=== PATIENT | male | born 1930 | race Caucasian/White ===

== ENCOUNTER → 2018-02-25 13:21 | Outpatient (CLI) | payer MEDICARE, BC ==
--- NOTE | ~2018-02-25 | EC ---
PATIENT:TIERNEY DIAL DATE OF SERVICE: 02/25/18 SEX: M MEDICAL RECORD: [id number] DATE OF : 32 LOCATION:D[facility] AGE OF PATIENT: 87 ADMISSION DATE: 02/25/18 REFERRING PHYSICIAN: INTERPRETING PHYSICIAN: PAMELA VERGARA MD ECHOCARDIOGRAM REPORT ECHO CHARGES 4 ECHO COMPLETE Date: 02/25 CLINICAL DIAGNOSIS: PVD,EDEMA OF LLL ECHOCARDIOGRAPHIC MEASUREMENTS (adult normal given) AC root (d.<3.7cm) 3.2 cm LV Septum d (<1.2 cm> 1.7 cm Valve Excursion 1.8 cm LV Septum (systole) 1.8 cm Left Atria (s.<4.0cm> 3.8 cm LVPW d(<1.2cm) 1.7 cm RV (d.<2.3cm) 4.2 cm LVPW (sytole) 1.9 cm LV diastole(<5.6CM) 4.0 cm MV E-F(>70mm/sec) cm LV systole 2.2 cm LVOT Diameter cm MV exc.(>10mm) 1.9 cm Est.ejection fraction (50-75%) % DOPPLER: LVIT 67.0 cm/sec A cm/sec E 78.0 cm/sec LA 93 cm/sec RVSP 28 mmHg LVOT 104 cm/sec AOP1/2T m/s Asc. Ao cm/sec RVOT 66 cm/sec RA cm/sec PA 99 cm/sec AV Gradient Peak 4.35 mmHg AV Mean 2.44 mmHg AV Area 2.3 cm MV Gradient Peak 2.99 mmHg MV Mean 1.09 mmHg MV Area cm COMMENTS: Glass Edger: Venessa BAUTISTA Well Driller: Atif Vergara TAPE# PACS Pericardial Effusion N DATE OF SERVICE: PROCEDURE: Transthoracic echocardiogram. FINDINGS: 1. The patient has LVH. Ejection fraction is 60%. Left atrium is normal size, shape, and function. 2. The aortic valve is normal. 3. The mitral valve is normal. 4. The tricuspid valve has mild tricuspid regurgitation. RVSP at 28 mmHg. ECHOCARDIOGRAM REPORT [id number] TIERNEY DIAL 5. The pericardium is normal. 6. The right ventricle is difficult to visualize, appears to have dilatation of the right ventricular structure with right ventricular hypertrophy, but with normal function. 7. The right atrium is mildly dilated. 8. The pulmonic valve is not well visualized. 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 TRANSINT:[id number] Voice Confirmation ID: [id number] DOCUMENT ID: [id number] PAMELA VERGARA MD at 1120 CC: [id number] DICTATION DATE: 02/25/18 1520 APPLICATIONS PROJECT MANAGER: 02/25/18 1538 DEP CLI 02/25/18 [facility] [address] [id number]
[~2018-02-25 13:21] MED LIST: ASPIRIN81 MG PO; BAYER CHEWABLE81 MG PO; LIPITOR10 MG PO; PLAVIX PO; PLAVIX75 MG PO
[2018-03-03 08:23] VITALS: BMI 21.7
== END | disposition home or self-care (01) ==
LOC: D.ECHO 13:21
DX: I73.9 Peripheral vascular disease, unspecified (principal); R20.2 Paresthesia of skin; I87.2 Venous insufficiency (chronic) (peripheral); R09.89 Other specified symptoms and signs involving the circulatory and respiratory systems; R07.9 Chest pain, unspecified; G45.9 Transient cerebral ischemic attack, unspecified

== ENCOUNTER 2018-03-03 07:49 | Outpatient (CLI) | payer MEDICARE, BC ==
[~2018-03-03] VITALS: Ht 177.8 cm; Wt 68.6 kg
--- NOTE | ~2018-03-03 | HEMODYNAMI ---
PATIENT:TIERNEY DIAL MEDICAL RECORD: [id number] : 32 LOCATION:[facility] ADMISSION DATE: 03/03/18 Generatedon:03/03/201810:59 Patient name: TIERNEY DIAL Patient #: [id number] SSN: : 1930 Date of study: 03/03/2018 Page: Of Hemodynamic Procedure Report Patient Data Patient Demographics Procedure consent was obtained First Name: TIERNEY Gender: Male Last Name: JAYRO : 1930 Middle Initial: M Age: 87 year(s) Patient #: [id number] Race: Additional ID: [id number] Contact details Address: [address] [place] [address] State: [place] City: [place] Zip code: [address] Admission Admission Data Admission Date: 03/03/2018 Admission Time: 7:49 Procedure Procedure Types Cath Procedure Peripheral Cath Diagnostic Procedure Cath Peripheral Zdtme-Fybbewe-Rgj-Off Abd/Extremity Extremities Left Lower Ext Arterio Right Lower Ext Arterio Peripheral vascular Intervention Stent Stent-Tib/Per w/plasty Initial Procedure Description Procedure Date Procedure Date: 03/03/2018 Procedure Start Time: 10:14 Procedure End Time: 10:51 Procedure Staff Name Function Guero Fuentes MD Ordering physician Rudy Junior MD Performing Physician Farida Weinberg RT Monitor Tamica Ho RT Scrub Nader Will RN Nurse Procedure Data Cath Procedure Fluoroscopy Diagnostic fluoroscopy Total fluoroscopy Time: 8.5 time: 8.5 min min Diagnostic fluoroscopy Total fluoroscopy dose: 161 dose: 161 mGy mGy Contrast Material Contrast Material Type Amount (ml) Isovue 300 126 Entry Location Entry Primary Successful Side Size Upsize Upsize Entry Closure Succes sful Closure Location (Fr) 1 (Fr) 2 (Fr) Remarks Device Remarks Femoral Right 5 Fr 6 Fr 6 Fr Exoseal artery Long Short Estimated blood loss: 5 ml Diagnostic catheters Device Type Used For End Catheter Placement DIAGNOSTIC Pigtail 5Fr Multi-vessel catheter ([id number]) Angiography Procedure Complications No complications Procedure Medications Medication Administration Route Dosage Oxygen NC 2 l/min Lidocaine 1% added to field 20 Heparin Flush Bag added to field 2 bags (1000units/500ml NS) 0.9% NaCl I.V. 100 ml/hr Versed I.V. 1 mg Fentanyl I.V. 50 mcg Nitroglycerin IC/IA I.A. 300 mcg Angiomax (bolus) I.V. 10.5 ml Angiomax Drip I.V. drip 24.2 ml/hr (250mg/50ml NS) (Standard) Nitroglycerin IC/IA I.A. 400 mcg Nitroglycerin IC/IA I.A. 300 mcg Angiomax Drip 24.2 ml/hr (250mg/50ml NS) (Standard) Hemodynamics Rest Heart Rate: 47 (bpm) Snapshots Pre Cath Intra NCS Post Cath Vital Signs Time Heart Resp SPO2 etCO2 NIBP (mmHg) Rhythm Pain Sedation Rate (ipm) (%) (mmHg) Status Level (bpm) 10:07:54 49 15 99 0 150/73(124) NSR 0 (11) 10(A) , No pain 10:12:16 48 12 94 0 148/70(127) NSR 0 (11) 10(A) , No pain 10:16:35 49 15 95 0 146/77(121) NSR 0 (11) 10(A) , No pain 10:20:55 47 16 99 30.2 135/68(114) NSR 0 (11) 9(A) , No pain 10:25:13 49 13 98 34.4 130/64(110) NSR 0 (11) 9(A) , No pain 10:29:21 48 19 98 25.4 119/63(76) NSR 0 (11) 9(A) , No pain 10:33:32 50 15 97 29.9 120/65(105) NSR 0 (11) 9(A) , No pain 10:37:42 50 22 97 27.7 115/66(86) NSR 0 (11) 10(A) , No pain 10:41:50 50 17 98 23.9 126/66(78) NSR 0 (11) 10(A) , No pain 10:46:06 51 19 98 26.9 118/63(91) NSR 0 (11) 10(A) , No pain 10:50:18 49 15 99 29.2 118/61(95) NSR 0 (11) 10(A) , No pain Medications Time Medication Route Dose Verified Delivered Reason Notes Effectiveness by by 10:06:10 Oxygen NC 2 Rudy Buffie used for l/min Sandi Will RN procedure 10:06:17 Lidocaine 1% added to field 20ml Rudy Buffie for local vial Sandi Will RN anesthetic 10:06:24 Heparin Flush added to field 2 Rudy Buffie used for Bag bags Sandi Will RN procedure (1000units/500ml NS) 10:06:32 0.9% NaCl I.V. 100 Rudy Buffie Per physici an ml/hr Sandi Will RN, MD 10:13:26 Versed I.V. 1 mg Rudy Buffie for sedatio n Sandi Will RN, MD 10:13:31 Fentanyl I.V. 50 Rudy Buffie for sedatio n mcg Sandi Will RN, MD 10:24:27 Nitroglycerin I.A. 300 Rudy Rudy for IC/IA mcg Sandi Junior MD vasodilation 10:36:05 Angiomax (bolus) I.V. 10.5 Rudy Buffie for 250mg/50ml ml Sandi Will RN anticoagulation 10:36:19 Nitroglycerin I.A. 400 Rudy Rudy for IC/IA mcg Sandi Junior MD vasodilation 10:37:02 Angiomax Drip I.V. drip 24.2 Rudy Buffie for (250mg/50ml NS) ml/hr Sandi Will RN anticoagulation (Standard) 10:44:01 Nitroglycerin I.A. 300 Rudy Rudy for IC/IA mcg Sandi Junior MD vasodilation 10:49:44 Angiomax Drip I.V. 24.2 Rudy Buffie for (250mg/50ml NS) drip-discontinued ml/hr Sandi Will RN anticoagulation (Standard) Procedure Log Time Note 9:50:00 Informed consent obtained and on chart 9:50:07 Diagnostic Cath Status : Elective 9:50:34 Nader Will RN sent for patient. Start room use. 9:50:35 Time tracking: Regular hours (M-F 7:00 - 5:00) 9:50:40 Plan of Care:Hemodynamics will remain stable., Cardiac rhythm will remain stable., Comfort level will be maintained., Respiratory function will remain adequate., Patient/ family verbilizes understanding of procedure., Procedure tolerated without complication., Recovers from procedure without complications.. 10:06:10 Oxygen 2 l/min NC was administered by Nader Will RN; used for procedure; 10:06:17 Lidocaine 1% 20ml vial added to field was administered by Nader Will RN; for local anesthetic; 10:06:24 Heparin Flush Bag (1000units/500ml NS) 2 bags added to field was administered by Nader Will RN; used for procedure; 10:06:32 0.9% NaCl 100 ml/hr I.V. was administered by Nader Will RN; Per physician; 10:06:35 Vital chart was started 10:09:49 Patient received from Pre/Post Procedure Room to CCL 2 Alert and oriented. Tansferred to table in Supine position. 10:09:51 Warm blankets applied, and america hugger turned on for patient comfort. 10:09:51 Correct patient and procedure confirmed by team. 10:09:51 ECG and BP/O2 sat monitors applied to patient. 10:09:52 Baseline sample Acquired. 10:09:56 Rhythm: sinus rhythm 10:09:58 Full Disclosure recording started 10:10:03 H&P Date Dictated: 03/03/2018 Within 30 days and on chart., H&P Addendum completed by physician on day of procedure. (MUST COMPLETE FOR ALL OUTPATIENTS). 10:10:04 Pre-procedure instructions explained to patient. 10:10:05 Pre-op teaching completed and patient verbalized understanding. 10:10:06 Family in waiting room. 10:10:07 Patient NPO since Midnight. 10:10:10 Is the patient allergic to Iodine/contrast media? No. 10:10:11 Was the patient premedicated? No 10:10:12 Is patient on blood thinner?Yes 10:10:15 ACC The patient was administered the following blood thiners within the last 24 hours: ACCPlavix 10:10:17 Patient diabetic? No. 10:10:21 Previous problem with sedation/anesthesia? No ? 10:10:23 Snore? Yes 10:10:24 Sleep apnea? No 10:10:25 Deviated septum? No 10:10:25 Opens mouth fully? Yes 10:10:26 Sticks out tongue? Yes 10:10:27 Airway obstruction? No ? 10:10:30 Dentures? No ? 10:10:34 Pre procedure: right dorsailis pedis pulse 1+ Palpable, but thready & weak; easily obliterated 10:10:36 Pre procedure: left dorsailis pedis pulse 1+ Palpable, but thready & weak; easily obliterated 10:10:37 Patient pain scale 0/10 ?. 10:10:48 IV patent on arrival in left forearm with 0.9% NaCl at [facility]. 10:10:51 Lab results completed and on chart. 10:10:57 Bilateral groins area was prepped with chlora-prep and draped in sterile fashion 10:10:58 Alarms reviewed by R. N. 10:10:58 Sharps counted by scrub and verified by R.N. 10:11:04 Physician arrived 10:11:04 --------ALL STOP TIME OUT------ 10:11:05 Final Timeout: patient, procedure, and site verified with staff and physician. All members of the team are in agreement. 10:11:08 Bilateral groins site verified by team. 10:11:11 Physical assessment completed. ASA score P 2 - A patient with mild systemic disease as per Rudy Junior MD. 10:11:14 Sedation plan: IV Moderate Sedation Medication:Versed, Fentanyl 10:11:20 Use device set Femoral Dx 10:11:21 ACIST Syringe (17571) opened to sterile field. 10:11:21 Bag Decanter () opened to sterile field. 10:11:22 Medline Cath Pack ([id number]) opened to sterile field. 10:11:22 DIAGNOSTIC WIRE .035 260cm J wire (162643) opened to sterile field. 10:11:23 ACIST Hand Control (68353) opened to sterile field. 10:11:24 ACIST Manifold (98250) opened to sterile field. 10:11:25 Tegaderm 4 x 4 (1626W) opened to sterile field. 10:11:26 SHEATH Prelude 5Fr 0.035 (QNK-3H-35-035) opened to sterile field. 10:12:07 Procedure started. 10:13:26 Versed 1 mg I.V. was administered by Nader Will RN; for sedation; 10:13:31 Fentanyl 50 mcg I.V. was administered by Nader Will RN; for sedation; 10:14:45 Local anesthetic to right femoral artery with Lidocaine 1% by Rudy Junior MD.INITIAL ACCESS ONLY 10:14:46 Access obtained with 4Fr micropunture. 10:14:55 A 5 Fr sheath was inserted into the Right Femoral artery 10:15:01 MICROPUNCTURE 4FR Ocean Seed (Q37314) opened to sterile field. 10:17:17 A DIAGNOSTIC Pigtail 5Fr catheter ([id number]) was advanced over the wire and used for Multi-vessel Angiography. 10:17:31 abdominal aortagram with runoff was performed. 10:21:04 GLIDE WIRE ANGLE 260cm (FX7874) opened to sterile field. 10:23:06 left popliteal artery selected and injected with contrast 10:24:27 Nitroglycerin IC/IA 300 mcg I.A. was administered by Rudy Junior MD; for vasodilation; 10:31:12 SHEATH 6FR Brite Tip 90cm ([id number]) opened to sterile field. 10:31:30 TORQUE DEVICE PLASTIC .038 ( TD01) opened to sterile field. 10:31:31 INFLATOR Merit BasixCompak (MG1149) opened to sterile field. 10:31:33 COPILOT Valve Control (6021572) opened to sterile field. 10:32:07 SHEATH 6Fr Prelude ([id number]) opened to sterile field. 10:32:35 Catheter removed. 10:32:45 Sheath upsized to a 6 Fr Long. 10:33:44 BMW 300cm [place] 2 J wire ([id number]) opened to sterile field. 10:34:19 glide wire exchanged for bmw wire 10:36:05 Angiomax (bolus) 10.5 ml I.V. was administered by Nader Will RN; for anticoagulation; 250mg/50ml 10:36:07 Procedure type changed to Cath procedure, Peripheral Cath Diagnostic Procedure, Cath Peripheral, Bflmf-Okrlkju-Iki-Off, Abd/Extremity, Extremities, Left Lower Ext Arterio, Right Lower Ext Arterio, Peripheral vascular Intervention, Stent, Stent-Tib/Per w/plasty Initial 10:36:19 Nitroglycerin IC/IA 400 mcg I.A. was administered by Rudy Junior MD; for vasodilation; 10:37:02 Angiomax Drip (250mg/50ml NS) (Standard) 24.2 ml/hr I.V. drip was administered by Nader Will RN; for anticoagulation; 10:38:43 Wire advanced across lesion. 10:40:38 Place stent Inflation Number: 1 A ROGER RX 2.0 x 22 stent ([id number]) was prepped and advanced across the Mid Posterior Tibial, Left. The stent was deployed at 18 DANIELLE for 0:10 (min:sec). 10:41:43 Stent catheter was removed intact over wire. 10:43:13 Place stent Inflation Number: 2 A ROGER RX 3.5 x 18 stent ([id number]) was prepped and advanced across the Mid Posterior Tibial, Left. The stent was deployed at 18 DANIELLE for 0:10 (min:sec). 10:43:35 Stent catheter was removed intact over wire. 10:44:01 Nitroglycerin IC/IA 300 mcg I.A. was administered by Rudy Junior MD; for vasodilation; 10:45:08 Wire removed. 10:45:08 Guide catheter removed. 10:45:23 Wire removed. 10:45:30 glide wire advanced. 10:47:38 6 f 90 sheath pulled back 10:48:16 Right leg runoff performed. 10:49:44 Angiomax Drip (250mg/50ml NS) (Standard) 24.2 ml/hr I.V. drip-discontinued was administered by Nader Will RN; for anticoagulation; 10:49:59 Sheath upsized to a 6 Fr Short. 10:50:19 EXOSEAL 6Fr (EX600) opened to sterile field. 10:50:31 Sheath removed intact; hemostasis achieved with Exoseal to the Right Femoral artery. 10:50:40 Procedure ended.(Physican Out) 10:50:48 Fluoroscopy time 08.50 minutes. 10:50:52 Fluoroscopy dose: 161 mGy 10:50:52 Flurop Dose total: 161 10:50:56 Contrast amount:Isovue 300 126ml. 10:50:58 Sharps counted by scrub and verified by R.N. 10:51:02 Insertion/operative site no bleeding no hematoma. 10:51:09 Post-op/insertion site Right Femoral artery dressed using a 4 x 4 and Tegaderm. 10:51:11 Post right femoral artery:stable 10:51:13 Post Procedure Pulses reassessed and unchanged 10:51:15 Post procedure rhythm: unchanged. 10:51:18 Estimated blood loss: 5 ml 10:51:19 Post procedure instruction explained to patient.Patient verbalizes understanding. 10:51:19 Patient needs reinforcement of post procedure teaching. 10:51:20 Procedure and supply charges have been captured, reviewed, submitted and are correct. 10:51:24 Procedure Complication : No complications 10:51:26 Vital chart was stopped 10:51:27 See physician's report for complete and final results. 10:51:36 Report given to Pre/Post Procedure Room. 10:51:38 Patient transfered to Pre/Post Procedure Room with Stretcher. 10:51:40 Procedure ended. 10:51:40 Full Disclosure recording stopped 10:52:31 ACC-PCI Only Patient was given prescriptions, or instructed by Rudy Junior MD to start/continue the following medications upon discharge: Plavix 10:52:33 End room use (Document Last) Intervention Summary Intervention Notes Time ActionType Lesion and Equipment Used Action# Pressure Duration Attributes 10:40:38 Place stent Mid ROGER RX 2.0 x 1 18 00:10 Posterior 22 stent Tibial, ([id number]) Left 10:43:13 Place stent Mid ROGER RX 3.5 x 2 18 00:10 Posterior 18 stent Tibial, ([id number]) Left Device Usage Item Name Manufacture Quantity Catalog Number Hospital Part Current Minimal Lot# / Charge Number Stock Stock Serial# Code ACIST Syringe Acist 1 96547 907057 308864 [id number] 20 (49309) [employer] Systems Inc Bag Decanter Microtek 1 2001S 683552 40461 245419 5 () Medical Inc. Medline Cath Cardinal 1 [id number] 266146 51816 669786 5 [facility] ([id number]) DIAGNOSTIC WIRE St Zi 1 752311 984259 510689 913539 30 .035 260cm J wire (783460) ACIST Hand Acist 1 58887 178715 584274 596320 5 Control (71255) [employer] Inc ACIST Manifold Acist 1 37842 153986 464613 747887 5 (08483) Medical Systems Inc Tegaderm 4 x 4 3M 1 1626W 165395 540256 874121 5 (1626W) SHEATH Prelude Merit 1 [id number] 450637 725560 485262 5 5Fr 0.035 Medical ([id number]) DIAGNOSTIC Cardinal 1 [id number] 840861 524053 251298 5 Pigtail 5Fr Health catheter ([id number]) MICROPUNCTURE Cook Medical 1 B76689 110118 047114 761259 5 4FR Cook (C83365) GLIDE WIRE Terumo 1 ZC6713 310786 805704 006670 5 ANGLE 260cm (UD2208) SHEATH 6FR Cardinal 1 [id number] 047519 952527 072287 5 Brite Tip 90cm Health ([id number]) TORQUE DEVICE Avalon 1 TD01 110028 928931 173238 5 PLASTIC .038 ( Scientific TD01) INFLATOR Merit Merit 1 [id number] 586749 773788 739986 15 BasixComselect medical [facility] Medical ([id number]) COPILOT Valve [place] 1 [id number] 750798 706366 190786 5 Control Vascular (0678365) SHEATH 6Fr Merit 1 [id number] 149324 954375 160257 5 Prelude Medical ([id number]) BMW 300cm [place] 1 [id number] 132346 971170 568467 5 [place] 2 J Vascular wire ([id number]) ROGER RX 2.0 x Medtronic 1 [id number] 356845 0502482 725760 5 [id number] 22 stent ([id number]) ROGER RX 3.5 x Medtronic 1 [id number] 069121 0119914 549542 5 [id number] 18 stent ([id number]) EXOSEAL 6Fr Cardinal 1 EX600 238389 020746 412723 10 (EX600) Health Signature Audit [place] Stage Time Signature Unsigned Intra-Procedure 03/03/2018 Farida Weinberg 10:58:59 AM RT(R) Signatures Monitor : Farida Weinberg RT Signature : Date : Time : [facility] [address] [place] [address]
[2018-03-03] MEDS ORDERED: BAYER CHEWABLE81 MG PO (08:13)
[2018-03-03 08:23] VITALS: BP 145/70; Ht 177.8 cm; Wt 68.6 kg
[2018-03-03 08:34] LABS: BASOPHILS 0.3 % (0-2); HEMATOCRIT 45.2 % (42.0-54.0); HEMOGLOBIN 15.4 g/dL (13.5-17.5); IMMATURE GRANULOCYTES 0.1 % (0-5); LYMPHOCYTES 35.2 % (15-50); MCH 32.2 pg (26.0-34.0); MCHC 34.1 g/dL (31.0-37.0); MCV 94.6 fL (80.0-100.0); MEAN PLATELET VOLUME 10.9 fL (7.4-10.4); MONOCYTES 5.2 % (2-11); NEUTROPHILS 57.2 % (40-80); PLATELET COUNT 210 10x3/uL (130-400); RBC 4.78 10x6/uL (4.20-6.10); WBC 8.6 10x3/uL (4.8-10.8)
[2018-03-03 09:04] LABS: ANION GAP 9.3 mmol/L (8-16); CALCIUM 9.1 mg/dL (8.5-10.1); CARBON DIOXIDE 29.8 mmol/L (21.0-32.0); CREATININE - SERUM 1.1 mg/dL (0.6-1.3); POTASSIUM - SERUM 4.1 mmol/L (3.5-5.1); T4 THYROXIN - FREE 0.92 ng/dL (0.76-1.46); THYROID STIMULATING HORMONE 3.35 uIU/mL (0.36-3.74)
[2018-03-03] MEDS ORDERED: PLAVIX PO (11:16)
[2018-03-03] MEDS ORDERED: PLAVIX75 MG PO (11:18)
[2018-03-03] MEDS ORDERED: LIPITOR10 MG PO (11:18)
[2018-03-03] MEDS ORDERED: ASPIRIN81 MG PO (11:21)
[2018-03-04 08:21] LABS: FOLATE (FOLIC ACID) - SERUM >20.0 ng/mL (>3.0)
== END 2018-03-03 15:15 | disposition home or self-care (01) ==
LOC: D.CATH 07:49
PROVIDERS: Internal Medicine Cardiovascular Disease
DX: I70.213 Atherosclerosis of native arteries of extremities with intermittent claudication, bilateral legs (principal); Z01.812 Encounter for preprocedural laboratory examination

== ENCOUNTER → 2018-06-01 15:03 | Outpatient (CLI) | payer MEDICARE, BC ==
[2018-03-03 08:23] VITALS: BMI 21.7
[2018-06-01 17:37] LABS: CHOL - HDL RATIO 3.5 ratio (2.3-4.9); LDL-HDL RATIO 1.9 ratio (1.5-3.5)
== END | disposition home or self-care (01) ==
LOC: D.LABREF 15:03
PROVIDERS: Internal Medicine Cardiovascular Disease
DX: E78.5 Hyperlipidemia, unspecified (principal)

== ENCOUNTER 2018-10-17 11:19 | Outpatient (CLI) | payer MEDICARE, BC ==
[~2018-10-17] VITALS: Ht 177.8 cm; Wt 70.9 kg
--- NOTE | ~2018-10-17 | HEMODYNAMI ---
PATIENT:TIERNEY DIAL MEDICAL RECORD: [id number] : 32 LOCATION:[facility] ADMISSION DATE: 10/17/18 Generatedon:10/17/201815:52 Patient name: TIERNEY DIAL Patient #: [id number] SSN: : 1930 Date of study: 10/17/2018 Page: Of Hemodynamic Procedure Report Patient Data Patient Demographics Procedure consent was obtained First Name: TIERNEY Gender: Male Last Name: JAYRO : 1930 Middle Initial: M Age: 87 year(s) Patient #: [id number] Race: Additional ID: [id number] Contact details Address: [address] [place] [address] State: [place] City: [place] Zip code: [address] Admission Admission Data Admission Date: 10/17/2018 Admission Time: 11:19 Procedure Procedure Types Cath Procedure Diagnostic Procedure LHC LHC w/Coronaries Procedure Description Procedure Date Procedure Date: 10/17/2018 Procedure Start Time: 15:38 Procedure End Time: 15:51 Procedure Staff Name Function Tree Pat MD Performing Physician Harpal Gifford RT Monitor Farida Weinberg RT Scrub Nader Will RN Nurse Procedure Data Cath Procedure Fluoroscopy Diagnostic fluoroscopy Total fluoroscopy Time: 1.2 time: 1.2 min min Diagnostic fluoroscopy Total fluoroscopy dose: 434 dose: 434 mGy mGy Contrast Material Contrast Material Type Amount (ml) Isovue 300 50 Entry Location Entry Primary Successful Side Size Upsize Upsize Entry Closure Succes sful Closure Location (Fr) 1 (Fr) 2 (Fr) Remarks Device Remarks Femoral Right 5 Fr Exoseal artery Estimated blood loss: 10 ml Diagnostic catheters Device Type Used For End Catheter Placement MULTIPACK JL 4.0 5Fr Procedure catheter MULTIPACK 3DRC 5Fr Procedure catheter MULTIPACK Pigtail 5 Fr Procedure catheter Procedure Medications Medication Administration Route Dosage Oxygen etCO2 Nasal cannula 2 l/min Lidocaine 2% added to field 20 Heparin Flush Bag added to field 2 bags (1000units/500ml NS) 0.9% NaCl I.V. 100 ml/hr Versed I.V. 1 mg Fentanyl I.V. 50 mcg Versed I.V. 1 mg Hemodynamics Rest Heart Rate: 61 (bpm) Pressure Samples Time Site Value (mmHg) Purpose Heart Use Rate(bpm) 15:43 LV 153/2,8 Snapshot 51 15:44 AO 151/101(107) Pullback 69 15:44 LV 146/4,9 Pullback 69 Gradients Valve Time Site 1 Site 2 Mean SEP/DFP Peak To Heart Use (mmHg) (sec/min) Peak Rate (mmHg) (bpm) Aortic 15:44 LV AO 0 15 0 69 146/4,9 151/101(107) Calculations Valve P-P Mean Valve Index Valve Source Name Gradient Area Flow (cm2) Aortic 0 0 0 0 Snapshots Pre Cath Intra NCS Post Cath Vital Signs Time Heart Resp SPO2 etCO2 NIBP (mmHg) Rhythm Pain Sedation Rate (ipm) (%) (mmHg) Status Level (bpm) 15:29:15 60 19 98 0 153/79(133) NSR 0 (11) 10(A) , No pain 15:33:30 59 13 100 0 136/89(128) NSR 0 (11) 10(A) , No pain 15:37:41 56 43 97 0 130/72(116) NSR 0 (11) 10(A) , No pain 15:42:59 55 34 97 0 133/71(117) NSR 0 (11) 9(A) , No pain 15:47:09 69 15 98 0 127/72(110) NSR 0 (11) 10(A) , No pain 15:51:19 69 14 97 0 127/70(98) NSR 0 (11) 10(A) , No pain Medications Time Medication Route Dose Verified Delivered Reason Notes Eff ectiveness by by 15:35:23 Oxygen etCO2 2 Tree Nader used for Nasal l/min St Jaxon Will RN procedure cannula 15:35:30 Lidocaine 2% added 20ml Tree Leavitt for local to vial [facility] anesthetic field MD BOLAÑOS 15:35:36 Heparin Flush added 2 Tree Tree used for Bag to bags [facility] procedure (1000units/500ml field MD BOLAÑOS NS) 15:35:44 0.9% NaCl I.V. 100 Tree Buffie Per ml/hr St Jaxon Will RN physician 15:38:48 Versed I.V. [address] Jaxon Will RN sedation 15:38:54 Fentanyl I.V. 50 Tree Doe for mcg [address] Jaxon Will RN sedation 15:43:47 Versed I.V. [address] Jaxon Will RN sedation Procedure Log Time Note 15:19:19 Informed consent obtained and on chart 15:20:00 Harpal PATEL(R) (CV) sent for patient. Start room use. 15:20:01 Time tracking: Regular hours (M-F 7:00 - 5:00) 15:20:12 Plan of Care:Hemodynamics will remain stable., Cardiac rhythm will remain stable., Comfort level will be maintained., Respiratory function will remain adequate., Patient/ family verbilizes understanding of procedure., Procedure tolerated without complication., Recovers from procedure without complications.. 15:21:00 Patient received from Pre/Post Procedure Room to [facility] 2 Alert and oriented. Tansferred to table in Supine position. 15:21:04 Warm blankets applied, and america hugger turned on for patient comfort. 15:21:05 Correct patient and procedure confirmed by team. 15:21:07 ECG and BP/O2 sat monitors applied to patient. 15:28:12 Baseline sample Acquired. 15:28:12 Vital chart was started 15:28:17 Rhythm: sinus rhythm 15:28:19 Full Disclosure recording started 15:28:23 H&P Date Dictated: 10/17/2018 Within 30 days and on chart., H&P Addendum completed by physician on day of procedure. (MUST COMPLETE FOR ALL OUTPATIENTS). 15:28:24 Pre-procedure instructions explained to patient. 15:28:24 Pre-op teaching completed and patient verbalized understanding. 15:28:26 Family in waiting room. 15:28:27 Patient NPO since Midnight. 15:28:29 Is the patient allergic to Iodine/contrast media? No. 15:28:30 Was the patient premedicated? No 15:28:31 Is patient on blood thinner?Yes 15:28:34 ACC The patient was administered the following blood thiners within the last 24 hours: ACCPlavix 15:28:37 Patient diabetic? No. 15:28:39 Previous problem with sedation/anesthesia? No ? 15:28:40 Snore? Yes 15:28:41 Sleep apnea? No 15:28:42 Deviated septum? No 15:28:43 Opens mouth fully? Yes 15:28:44 Sticks out tongue? Yes 15:28:45 Airway obstruction? No ? 15:28:47 Dentures? No ? 15:28:59 Modified Herberth's test Radial > 7 seconds. 15:29:01 Patient pain scale 0/10 ?. 15:29:07 IV patent on arrival in left forearm with 0.9% NaCl at [facility]. 15:29:09 Lab results completed and on chart. 15:29:13 Right groin area was prepped with chlora-prep and draped in sterile fashion 15:29:14 Alarms reviewed by R. N. 15:29:15 Sharps counted by scrub and verified by R.N. 15:32:06 Use device set Femoral Dx 15:32:08 ACIST Syringe (72662) opened to sterile field. 15:32:09 Bag Decanter (2002S) opened to sterile field. 15:32:10 Medline Cath Pack ([id number]) opened to sterile field. 15:32:10 DIAGNOSTIC WIRE .035 260cm J wire (635428) opened to sterile field. 15:32:12 ACIST Hand Control (48856) opened to sterile field. 15:32:13 ACIST Manifold (88258) opened to sterile field. 15:32:15 DIAGNOSTIC Multipack 5Fr catheter set ([id number]) opened to sterile field. 15:32:15 Tegaderm 4 x 4 (1626W) opened to sterile field. 15:32:17 SHEATH 5FR Elm Mott ([id number]) opened to sterile field. 15:35:23 Oxygen 2 l/min etCO2 Nasal cannula was administered by Nader Will RN; used for procedure; 15:35:30 Lidocaine 2% 20ml vial added to field was administered by Tree Pat MD; for local anesthetic; 15:35:36 Heparin Flush Bag (1000units/500ml NS) 2 bags added to field was administered by Tree Pat MD; used for procedure; 15:35:44 0.9% NaCl 100 ml/hr I.V. was administered by Buffie Will RN; Per physician; 15:37:47 Physician arrived 15::47 --------ALL STOP TIME OUT------ 15:37:48 Final Timeout: patient, procedure, and site verified with staff and physician. All members of the team are in agreement. 15:37:51 Right groin site verified by team. 15:37:55 Physical assessment completed. ASA score P 2 - A patient with mild systemic disease as per Tree Pat MD. 15:37:58 Sedation plan: IV Moderate Sedation Medication:Versed, Fentanyl 15:38:25 Procedure started. 15:38:31 Local anesthetic to right femoral artery with Lidocaine 2% by Tree Pat MD.INITIAL ACCESS ONLY 15:38:48 Versed 1 mg I.V. was administered by Nader Will RN; for sedation; 15:38:52 A 5 Fr sheath was inserted into the Right Femoral artery 15:38:54 Fentanyl 50 mcg I.V. was administered by Nader Will RN; for sedation; 15:39:25 A MULTIPACK JL 4.0 5Fr catheter was advanced over the wire and used for Procedure. 15:40:18 LCA angiography performed. 15:40:56 Catheter removed. 15:41:24 A MULTIPACK 3DRC 5Fr catheter was advanced over the wire and used for Procedure. 15:42:14 RCA angiography performed. 15:42:24 Catheter removed. 15:42:52 A MULTIPACK Pigtail 5 Fr catheter was advanced over the wire and used for Procedure. 15:43:37 LV hemodynamics recorded. 15:43:39 LV gram done using LOU 15::47 Versed 1 mg I.V. was administered by Nader Will RN; for sedation; 15:43:48 EF : 55 % 15:44:19 Catheter removed. 15:44:37 Sheath removed intact; hemostasis achieved with Exoseal to the Right Femoral artery. 15:44:39 Procedure ended.(Physican Out) 15:47:54 Fluoroscopy time 01.20 minutes. 15:48:02 Fluoroscopy dose: 434 mGy 15:48:02 Flurop Dose total: 434 15:48:12 Contrast amount:Isovue 300 50ml. 15:48:14 Sharps counted by scrub and verified by R.N. 15:49:24 Insertion/operative site no bleeding no hematoma. 15:49:28 Post-op/insertion site Right Femoral artery dressed using a 4 x 4 and Tegaderm. 15:49:32 Post right femoral artery:stable 15:49:59 Post-procedure physical assessment completed. ASA score P 2 - A patient with mild systemic disease as per Tree Pat MD. 15:50:11 Post procedure rhythm: sinus rhythm 15:50:16 Estimated blood loss: 10 ml 15:50:20 Patient needs reinforcement of post procedure teaching. 15:50:54 Procedure and supply charges have been captured, reviewed, submitted and are correct. 15:50:57 Vital chart was stopped 15:51:00 See physician's report for complete and final results. 15:51:02 Report given to Pre/Post Procedure Room. 15:51:06 Patient transfered to Pre/Post Procedure Room with Stretcher. 15:51:08 Procedure ended. 15:51:08 Full Disclosure recording stopped 15:51:12 End room use (Document Last) Device Usage Item Name Manufacture Quantity Catalog Hospital Part Current Minimal L ot# / Number Charge Number Stock Stock Serial# Code ACIST Acist 1 [id number] [id number] [id number] 633954 20 Syringe Medical (13442) Systems Inc Bag Microtek 1 2001S 322307 65933 394580 5 Decanter Medical Inc. () Medline Medline 1 [id number] 622596 27237 754443 5 Cath Pack ([id number]) DIAGNOSTIC St Zi 1 873454 810081 575943 836246 30 WIRE .035 260cm J wire (860793) ACIST Hand Acist 1 81003 221590 006971 979673 5 Control Medical (27656) Systems Inc ACIST Acist 1 48426 427722 504654 152070 5 Manifold Medical (50256) Systems Inc DIAGNOSTIC Cardinal 1 [id number] 864876 82658 570555 30 Multipack Health 5Fr catheter set ([id number]) Tegaderm 4 3M 1 1626W 926910 474873 837482 5 x 4 (1626W) SHEATH 5FR Terumo 1 [id number] 433282 640536 574258 5 Elm Mott ([id number]) MULTIPACK Cardinal 1 954111 5 JL 4.0 5Fr Health catheter MULTIPACK Cardinal 1 099017 5 3DRC 5Fr Health catheter MULTIPACK Cardinal 1 844794 5 Pigtail 5 Health Fr catheter Signature Audit Minerva Stage Time Signature Unsigned Intra-Procedure 10/17/2018 Harpal Gifford 3:52:01 PM RT(R) (CV) Signatures Monitor : Harpal Gifford RT Signature : Date : Time : [place] [id number] [facility] [place] [address]
[2018-10-17] MEDS ORDERED: MULTI-DAY VITAM1 TAB PO (11:54)
[2018-10-17] MEDS ORDERED: CALCIUM 600 +1 EAC3 PO (11:54)
[2018-10-17 12:14] VITALS: BP 132/77; Ht 177.8 cm; Wt 70.9 kg
[2018-10-17 12:35] LABS: BASOPHILS 0.3 % (0-2); EOSINOPHILS 1.7 % (0-7); HEMOGLOBIN 14.4 g/dL (13.5-17.5); IMMATURE GRANULOCYTES 0.1 % (0-5); MCH 31.9 pg (26.0-34.0); MCHC 33.5 g/dL (31.0-37.0); MCV 95.1 fL (80.0-100.0); MEAN PLATELET VOLUME 10.5 fL (7.4-10.4); MONOCYTES 6.4 % (2-11); NEUTROPHILS 63.5 % (40-80); PLATELET COUNT 250 10x3/uL (130-400); RBC 4.52 10x6/uL (4.20-6.10); RDW 13.2 % (11.5-14.5); WBC 9.5 10x3/uL (4.8-10.8)
[2018-10-17 12:44] LABS: ANION GAP 14.3 mmol/L (8-16); CALCIUM 8.9 mg/dL (8.5-10.1); CARBON DIOXIDE 28.6 mmol/L (21.0-32.0); CREATININE - SERUM 1.2 mg/dL (0.6-1.3); POTASSIUM - SERUM 3.9 mmol/L (3.5-5.1)
--- NOTE | 2018-10-17 16:15 | NUR ---
PATIENT RESTING, RESPONDS TO VERBAL STIMULI. VSS ON 1L NC. RIGHT GROIN DRESSING IS CDI, NO S/S OF BLEEDING OR HEMATOMA.
--- NOTE | 2018-10-17 16:45 | NUR ---
PATIENT RESTING. VSS ON ROOM AIR. RIGHT GROIN DRESSING IS CDI, NO S/S OF BLEEDING OR HEMATOMA.
--- NOTE | 2018-10-17 17:15 | NUR ---
PATIENT AWAKE, DRINKING WATER. HEAD OF BED ELEVATED TO 30 DEGREES. RIGHT GROIN DRESSING IS CDI, NO S/S OF BLEEDING OR HEMATOMA. NO C/O PAIN, NUMBNESS, OR TINGLING. VSS ON ROOM AIR.
--- NOTE | 2018-10-17 17:45 | NUR ---
DISCHARGE INSTRUCTIONS GIVEN TO PATIENT AND SON, ALL QUESTIONS ANSWERED, PATIENT AND SON STATE UNDERSTANDING. VSS ON ROOM AIR. IV REMOVED. RIGHT GROIN DRESSING IS CDI, NO S/S OF BLEEDING OR HEMATOMA.
--- NOTE | 2018-10-17 18:00 | NUR ---
PATIENT TRANSPORTED VIA WHEELCHAIR TO CAR WITH SON DRIVING, ALL BELONGINGS WITH PATIENT.
--- NOTE | 2018-10-22 12:54 | OP ---
PATIENT NAME: TIERNEY DIAL MEDICAL RECORD: [id number] :32 LOCATION:D[facility] ADMISSION DATE: SURGEON: NICKI RODRIGUEZ MD DATE OF OPERATION: 10/17/2018 PROCEDURE: Left heart catheterization, selective coronary angiography, right femoral artery approach. CATHETERS: A 5-Turkish sheath, 5/4 left and right Carol Ann, 5/4 pig. The procedure was well tolerated. The patient was returned to mejia. Sheath wad removed. ExoSeal device was placed. FINDINGS: Left ventriculography in 30-degree LOU view: Normal wall motion and normal systolic function. CORONARY ANATOMY: LEFT MAIN: Left main is free of disease. LAD: Free of disease in the diagonal system. CIRCUMFLEX: Free of disease in the marginal system. RIGHT CORONARY ARTERY: Dominant artery, giving rise to PDA, free of disease. IMPRESSION: Normal LV systolic function. Normal coronary anatomy. TRANSINT:[id number] Voice Confirmation ID: [id number] DOCUMENT ID: [id number] NICKI RODRIGUEZ MD at 1254 CC: [id number] DICTATION DATE: 10/17/18 1554 AUTOMOBILE APPRAISER: 10/17/18 2109 DEP CLI 10/17/18 [place] [address] [place] [address]
== END 2018-10-17 18:00 ==
LOC: D.CATH 11:19
PROVIDERS: Internal Medicine Interventional Cardiology
DX: R07.9 Chest pain, unspecified (principal); I73.9 Peripheral vascular disease, unspecified; R56.9 Unspecified convulsions; Z82.49 Family history of ischemic heart disease and other diseases of the circulatory system; Z88.5 Allergy status to narcotic agent; Z88.0 Allergy status to penicillin; Z79.82 Long term (current) use of aspirin; Z79.02 Long term (current) use of antithrombotics/antiplatelets; Z79.899 Other long term (current) drug therapy; Z01.812 Encounter for preprocedural laboratory examination

== ENCOUNTER → 2019-05-23 13:51 | Outpatient (CLI) | payer MEDICARE, BC ==
[2018-10-17 12:14] VITALS: BMI 22.4
[~2019-05-23 13:51] MED LIST changes: +CALCIUM 600 +1 EAC3 PO; +MULTI-DAY VITAM1 TAB PO
--- NOTE | 2019-05-25 15:51 | EC ---
PATIENT:TIERNEY DIAL DATE OF SERVICE: 05/23/19 SEX: M MEDICAL RECORD: [id number] DATE OF : [birth year] [facility]GE [facility] PAT[facility]: 88 ADMISSION DATE: 05/23/19 REFERRING PHYSICIAN: INTERPRETING PHYSICIAN: NICKI RODRIGUEZ MD ECHOCARDIOGRAM REPORT ECHO CHARGES 4 ECHO COMPLETE Date: 05/23/19 CLINICAL DIAGNOSIS: VILLALBA/MURMUR H/O HTN/PVD ECHOCARDIOGRAPHIC MEASUREMENTS (adult normal given) AC root (d.<3.7cm) 3.5 cm LV Septum d (<1.2 cm> 1.1 cm Valve Excursion 1.8 cm LV Septum (systole) 1.7 cm Left Atria (s.<4.0cm> 3.8 cm LVPW d(<1.2cm) 1.2 cm RV (d.<2.3cm) 2.5 cm LVPW (sytole) 1.8 cm LV diastole(<5.6CM) 5.3 cm MV E-F(>70mm/sec) cm LV systole 2.5 cm LVOT Diameter 2.0 cm MV exc.(>10mm) cm Est.ejection fraction (50-75%) % DOPPLER: LVIT cm/sec A 75.0 cm/sec E 58.0 cm/sec LA cm/sec RVSP 22.0 mmHg LVOT 130 cm/sec AOP1/2T m/s Asc. Ao 132 cm/sec RVOT 60.0 cm/sec RA cm/sec PA 90.0 cm/sec AV Gradient Peak 6.9 mmHg AV Mean 3.4 mmHg AV Area 2.8 cm MV Gradient Peak 3.6 mmHg MV Mean 1.3 mmHg MV Area cm COMMENTS: OP - HC Outboard Motor Mechanic: 1 [facility] Representative: 3 Dr. Sandoval TAPE# PACS Pericardial Effusion N DATE OF SERVICE: Adequate 2-D echo, Color-Flow and Spectral Doppler, and M-mode Borderline LVH. LV internal dimension is normal. Wall motion is normal. EF is greater than or equal to 55%. Aortic valve is sclerosed. No evidence of stenosis by Doppler interrogation. Left atrium is normal at 3.4 cm. Mitral valve is thickened. Moderate mitral annular calcification. Mild MR. Right-sided chambers are grossly normal. Mild TR. ECHOCARDIOGRAM REPORT [id number] TIERNEY DIAL TRANSINT:[id number] Voice Confirmation ID: [id number] DOCUMENT ID: [id number] NICKI RODRIGUEZ MD at 1551 CC: [id number] DICTATION DATE: 05/24/19 1328 [place]: 05/24/191922 DEP CLI 05/23/19 [place] [id number] [place] [id number]
== END | disposition home or self-care (01) ==
LOC: D.HCCARDIO 13:51
PROVIDERS: ATTEND Internal Medicine Interventional Cardiology
DX: R01.1 Cardiac murmur, unspecified (principal)